=== PATIENT | male | born 1975 | race Caucasian/White ===

== ENCOUNTER 2017-12-16 19:18 | Emergency (ER) | payer OTHER ==
[~2017-12-16] VITALS: Ht 175.3 cm; Wt 86.2 kg
[~2017-12-16 19:18] MED LIST: Bactrim Ds Tab1 EACH PO; CEPH500 PO; CODACE30 PO; CYCL10 PO; IBUP800 PO; Keflex500 MG PO; NAPR500 PO; NAPR500ERA PO; Norco 5-325 Ta1 EACH PO; OXYACE5T PO; PENVK500 PO; PROM25 PO; TRAM50 PO; Ultram50 MG PO
[2017-12-16 20:37] LABS: BASOPHILS ABSOLUTE AUTO 0.09 K/mm3 (0.00-0.23); BASOPHILS PERCENT AUTO 1 % (0-2); EOSINOPHILS ABSOLUTE AUTO 0.36 K/mm3 (0.00-0.68); EOSINOPHILS PERCENT AUTO 2 % (0-6); Hematocrit 41.4 % (37.0-53.0); Hemoglobin 13.9 g/dL (13.5-17.5); IMMATURE GRAN ABSOLUTE AUTO 0.11 K/mm3 (0.00-0.10); IMMATURE GRAN PERCENT AUTO 1 % (0-1); LYMPHOCYTES ABSOLUTE AUTO 2.38 K/mm3 (0.84-5.20); LYMPHOCYTES PERCENT AUTO 15 % (21-46); MONOCYTES ABSOLUTE AUTO 1.52 K/mm3 (0.16-1.47); MONOCYTES PERCENT AUTO 10 % (4-13); Mean Corpuscular HGB 30.2 pg (26.0-34.0); Mean Corpuscular HGB Conc 33.6 g/dL (31.5-36.5); Mean Corpuscular Volume 90 fL (80-100); Mean Platelet Volume 9.8 fL (9.1-12.4); NEUTROPHILS ABSOLUTE AUTO 11.01 K/mm3 (1.96-9.15); NEUTROPHILS PERCENT AUTO 71 % (41-73); Platelet Count 308 K/mm3 (150-400); RDW Coefficient Variation 13.2 % (11.7-14.2); RDW Standard Deviation 43.5 fL (35.1-46.3); White Blood Cell Count 15.47 K/mm3 (4.00-11.30)
[2017-12-16 20:51] LABS: Anion Gap 11 mmol/L (6-16); Blood Urea Nitrogen 16 mg/dL (8-24); CO2, Blood 22 mmol/L (21-32); Calcium, Blood 8.9 mg/dL (8.5-10.1); Chloride, Blood 105 mmol/L (98-108); Creatinine, Blood 0.67 mg/dL (0.60-1.20); Glomerular Filtration Rate >60 (60-); Glucose, Blood 85 mg/dL (70-99); Potassium, Blood 3.7 mmol/L (3.5-5.5); Sodium, Blood 138 mmol/L (136-145)
[2017-12-16] MEDS ORDERED: CEPH500 PO (23:17)
[2017-12-16] MEDS ORDERED: Percocet 5-3251 EACH PO (23:17)
[2018-01-15] MEDS ORDERED: Percocet 10-321 EACH PO (17:55)
[2018-01-15] MEDS ORDERED: IBUP800 PO (17:55)
[2018-03-06] MEDS ORDERED: CEPH500 PO (20:59)
[2018-06-24] MEDS ORDERED: ROXICODONE5 MG PO (15:50)
[2018-06-24] MEDS ORDERED: DOCU100 PO (15:59)
[2018-06-24] MEDS ORDERED: NAPR500 PO (16:00)
== END 2017-12-16 23:43 | disposition home or self-care (01) ==
LOC: ER 19:18
PROVIDERS: Nurse Practitioner Family
DX: L02.411 Cutaneous abscess of right axilla (principal); Z88.5 Allergy status to narcotic agent; Z87.891 Personal history of nicotine dependence
CPT/HCPCS: 10061; 36415; 76604; 80048; 85025; 99284

== ENCOUNTER 2017-12-18 22:07 | Emergency (ER) | payer OTHER ==
[~2017-12-18] VITALS: Ht 175.3 cm; Wt 86.2 kg
[~2017-12-18 22:07] MED LIST changes: +Percocet 5-3251 EACH PO
[2017-12-18] MEDS ORDERED: HYDR-86 PO (22:46)
[2018-01-15] MEDS ORDERED: IBUP800 PO (17:55)
[2018-01-15] MEDS ORDERED: Percocet 10-321 EACH PO (17:55)
[2018-03-06] MEDS ORDERED: CEPH500 PO (20:59)
[2018-06-24] MEDS ORDERED: ROXICODONE5 MG PO (15:50)
[2018-06-24] MEDS ORDERED: DOCU100 PO (15:59)
[2018-06-24] MEDS ORDERED: NAPR500 PO (16:00)
== END 2017-12-18 23:21 | disposition home or self-care (01) ==
LOC: ER 22:07
DX: L02.411 Cutaneous abscess of right axilla (principal); Z88.5 Allergy status to narcotic agent; Z79.2 Long term (current) use of antibiotics; Z87.891 Personal history of nicotine dependence
CPT/HCPCS: 10060; 99283

== ENCOUNTER 2017-12-20 16:35 | Emergency (ER) | payer OTHER ==
[~2017-12-20] VITALS: Ht 175.3 cm; Wt 86.2 kg
[~2017-12-20 16:35] MED LIST changes: +HYDR-86 PO
[2017-12-20] MEDS ORDERED: Percocet 5-3251 EACH PO (17:59)
[2018-01-15] MEDS ORDERED: Percocet 10-321 EACH PO (17:55)
[2018-01-15] MEDS ORDERED: IBUP800 PO (17:55)
[2018-03-06] MEDS ORDERED: CEPH500 PO (20:59)
[2018-06-24] MEDS ORDERED: ROXICODONE5 MG PO (15:50)
[2018-06-24] MEDS ORDERED: DOCU100 PO (15:59)
[2018-06-24] MEDS ORDERED: NAPR500 PO (16:00)
== END 2017-12-20 18:03 | disposition home or self-care (01) ==
LOC: ER 16:35
DX: L02.411 Cutaneous abscess of right axilla (principal); Z88.5 Allergy status to narcotic agent; Z87.891 Personal history of nicotine dependence
CPT/HCPCS: 99282

== ENCOUNTER 2018-01-15 14:25 | Emergency (ER) | END 2018-01-15 18:13 | disposition home or self-care (01) ==

== ENCOUNTER 2018-08-16 12:12 | Day surgery (SDC) | payer OTHER ==
[~2018-08-16] VITALS: Ht 175.3 cm; Wt 88.5 kg
[~2018-08-16 12:12] MED LIST changes: +DOCU100 PO; +Percocet 10-321 EACH PO; +ROXICODONE5 MG PO
== END 2018-08-16 16:55 | disposition home or self-care (01) ==
LOC: ORSCSDS 12:12
PROVIDERS: Orthopaedic Surgery
PROC: 0PSK04Z Reposition Right Ulna with Internal Fixation Device, Open Approach (ICD-10-PCS; principal; 2018-08-16 13:30)
DX: S52.201G Unspecified fracture of shaft of right ulna, subsequent encounter for closed fracture with delayed healing (principal); F17.220 Nicotine dependence, chewing tobacco, uncomplicated
CPT/HCPCS: C1713; J0690; J1885; J2060; J2250; J3010; J7120

== ENCOUNTER 2018-12-24 08:43 | Emergency (ER) | payer OTHER ==
[~2018-12-24] VITALS: Ht 175.3 cm; Wt 86.2 kg
[2018-12-24] MEDS ORDERED: Amoxicillin875 MG PO (09:19)
[2018-12-24] MEDS ORDERED: KETO10 PO (09:19)
[2018-12-24] MEDS ORDERED: Ultram50 MG PO (14:08)
== END 2018-12-24 09:40 | disposition home or self-care (01) ==
LOC: ER 08:43
DX: K02.9 Dental caries, unspecified (principal); Z87.891 Personal history of nicotine dependence
CPT/HCPCS: 99282

== ENCOUNTER 2018-12-24 13:59 | Emergency (ER) | payer OTHER ==
[~2018-12-24] VITALS: Ht 175.3 cm; Wt 86.2 kg
[~2018-12-24 13:59] MED LIST changes: +Amoxicillin875 MG PO; +KETO10 PO
[2018-12-24] MEDS ORDERED: Ultram50 MG PO (14:08)
== END 2018-12-24 14:32 | disposition home or self-care (01) ==
LOC: ER 13:59
DX: K04.7 Periapical abscess without sinus (principal); Z79.899 Other long term (current) drug therapy; Z87.891 Personal history of nicotine dependence
CPT/HCPCS: 99282

== ENCOUNTER → 2018-12-28 | Outpatient (CLI) | payer OTHER ==
[2018-12-28 18:37] LABS: BASOPHILS ABSOLUTE AUTO 0.11 K/mm3 (0.00-0.23); BASOPHILS PERCENT AUTO 1 % (0-2); EOSINOPHILS ABSOLUTE AUTO 0.21 K/mm3 (0.00-0.68); EOSINOPHILS PERCENT AUTO 3 % (0-6); Hematocrit 44.3 % (37.0-53.0); Hemoglobin 14.6 g/dL (13.5-17.5); IMMATURE GRAN ABSOLUTE AUTO 0.07 K/mm3 (0.00-0.10); IMMATURE GRAN PERCENT AUTO 1 % (0-1); LYMPHOCYTES ABSOLUTE AUTO 2.56 K/mm3 (0.84-5.20); LYMPHOCYTES PERCENT AUTO 31 % (21-46); MONOCYTES ABSOLUTE AUTO 0.72 K/mm3 (0.16-1.47); MONOCYTES PERCENT AUTO 9 % (4-13); Mean Corpuscular HGB 29.9 pg (26.0-34.0); Mean Corpuscular Volume 91 fL (80-100); Mean Platelet Volume 10.8 fL (9.1-12.4); NEUTROPHILS ABSOLUTE AUTO 4.71 K/mm3 (1.96-9.15); NEUTROPHILS PERCENT AUTO 56 % (41-73); Platelet Count 308 K/mm3 (150-400); RDW Coefficient Variation 14.5 % (11.7-14.2); RDW Standard Deviation 48.5 fL (35.1-46.3); Red Blood Cell Count 4.89 M/mm3 (4.30-5.90); White Blood Cell Count 8.38 K/mm3 (4.00-11.30)
[2018-12-28 19:17] LABS: Alanine Aminotransfer (ALT/SGP 19 U/L (12-78); Albumin/Globulin Ratio 1.2 (0.8-1.8); Alk Phos 63 U/L (50-136); Anion Gap 8 mmol/L (6-16); Aspartate Aminotrans (AST/SGOT 9 U/L (12-37); Bilirubin, Total 0.4 mg/dL (0.1-1.0); Blood Urea Nitrogen 13 mg/dL (8-24); Bun/Creatinine Ratio 18.1 (12.0-20.0); CO2, Blood 27 mmol/L (21-32); Calcium, Blood 8.9 mg/dL (8.5-10.1); Chloride, Blood 106 mmol/L (98-108); Creatinine, Blood 0.72 mg/dL (0.60-1.20); Globulin, Blood 3.2 g/dL (2.2-4.0); Glomerular Filtration Rate >60 (60-); Glucose, Blood 98 mg/dL (70-99); Sodium, Blood 141 mmol/L (136-145); Total Protein, Blood 7.2 g/dL (6.4-8.2)
[2019-01-02 17:06] LABS: HEPATITIS C QUANTITATION HCV Not Detected IU/mL (.)
== END ==
LOC: LAB SHORT 18:20 → LAB 18:20
PROVIDERS: Nurse Practitioner Family
DX: B18.2 Chronic viral hepatitis C (principal)
CPT/HCPCS: 80053; 85025; 86803; 87522; 87902

== ENCOUNTER 2022-09-30 22:19 | Emergency (ER) | payer OTHER ==
[~2022-09-30] VITALS: Ht 175.3 cm; Wt 86.2 kg
[2022-09-30 22:59] LABS: BASOPHILS ABSOLUTE AUTO 0.15 K/mm3 (0.00-0.23); BASOPHILS PERCENT AUTO 1 % (0-2); EOSINOPHILS ABSOLUTE AUTO 1.07 K/mm3 (0.00-0.68); EOSINOPHILS PERCENT AUTO 10 % (0-6); Hematocrit 44.7 % (37.0-53.0); Hemoglobin 15.2 g/dL (13.5-17.5); IMMATURE GRAN ABSOLUTE AUTO 0.04 K/mm3 (0.00-0.10); IMMATURE GRAN PERCENT AUTO 0 % (0-1); LYMPHOCYTES ABSOLUTE AUTO 2.39 K/mm3 (0.84-5.20); LYMPHOCYTES PERCENT AUTO 22 % (21-46); MONOCYTES ABSOLUTE AUTO 1.14 K/mm3 (0.16-1.47); MONOCYTES PERCENT AUTO 10 % (4-13); Mean Corpuscular Volume 88 fL (80-100); NEUTROPHILS ABSOLUTE AUTO 6.24 K/mm3 (1.96-9.15); NEUTROPHILS PERCENT AUTO 57 % (41-73); Platelet Count 293 K/mm3 (150-400); RDW Coefficient Variation 13.4 % (11.7-14.2); RDW Standard Deviation 43.3 fL (35.1-46.3); Red Blood Cell Count 5.07 M/mm3 (4.30-5.90); White Blood Cell Count 11.03 K/mm3 (4.00-11.30)
[2022-09-30 23:17] LABS: Albumin, Blood 3.9 g/dL (3.4-5.0); Albumin/Globulin Ratio 1.1 (0.8-1.8); Bilirubin, Total 1.2 mg/dL (0.1-1.0); Bun/Creatinine Ratio 27.9 (12.0-20.0); Calcium, Blood 9.3 mg/dL (8.5-10.1); Creatinine, Blood 0.68 mg/dL (0.60-1.20); Globulin, Blood 3.6 g/dL (2.2-4.0); Potassium, Blood 3.9 mmol/L (3.5-5.5); Total Protein, Blood 7.5 g/dL (6.4-8.2)
[2022-10-01] MEDS ORDERED: PRED20 PO (01:57)
[2022-10-01] MEDS ORDERED: ALBU90OI INH (01:57)
== END 2022-10-01 02:10 | disposition home or self-care (01) ==
LOC: ER 22:19
PROVIDERS: Student in an Organized Health Care Education/Training Program
DX: J44.1 Chronic obstructive pulmonary disease with (acute) exacerbation (principal); Z79.899 Other long term (current) drug therapy; F17.220 Nicotine dependence, chewing tobacco, uncomplicated
CPT/HCPCS: 36415; 71046; 80053; 84484; 85025; 93005; 93010; 94644; 94645; 94664; J2930

== ENCOUNTER 2022-10-16 16:23 | Observation (INO) | payer OTHER ==
[~2022-10-16] VITALS: Ht 175.3 cm; Wt 81.6 kg
[~2022-10-16 16:23] MED LIST changes: +ALBU90OI INH; +PRED20 PO
[2022-10-16 17:00] LABS: BASOPHILS ABSOLUTE AUTO 0.11 K/mm3 (0.00-0.23); BASOPHILS PERCENT AUTO 1 % (0-2); EOSINOPHILS ABSOLUTE AUTO 1.61 K/mm3 (0.00-0.68); EOSINOPHILS PERCENT AUTO 14 % (0-6); Hematocrit 46.1 % (37.0-53.0); Hemoglobin 15.5 g/dL (13.5-17.5); IMMATURE GRAN ABSOLUTE AUTO 0.04 K/mm3 (0.00-0.10); IMMATURE GRAN PERCENT AUTO 0 % (0-1); LYMPHOCYTES ABSOLUTE AUTO 2.21 K/mm3 (0.84-5.20); LYMPHOCYTES PERCENT AUTO 19 % (21-46); MONOCYTES ABSOLUTE AUTO 0.88 K/mm3 (0.16-1.47); MONOCYTES PERCENT AUTO 8 % (4-13); Mean Corpuscular HGB 29.8 pg (26.0-34.0); Mean Corpuscular HGB Conc 33.6 g/dL (31.5-36.5); Mean Corpuscular Volume 89 fL (80-100); Mean Platelet Volume 9.7 fL (9.1-12.4); NEUTROPHILS ABSOLUTE AUTO 6.85 K/mm3 (1.96-9.15); NEUTROPHILS PERCENT AUTO 59 % (41-73); Platelet Count 318 K/mm3 (150-400); RDW Coefficient Variation 13.5 % (11.7-14.2); RDW Standard Deviation 43.8 fL (35.1-46.3); Red Blood Cell Count 5.21 M/mm3 (4.30-5.90)
[2022-10-16 17:18] LABS: Albumin, Blood 3.9 g/dL (3.4-5.0); Albumin/Globulin Ratio 1.1 (0.8-1.8); Bilirubin, Total 0.6 mg/dL (0.1-1.0); Bun/Creatinine Ratio 17.5 (12.0-20.0); Calcium, Blood 9.5 mg/dL (8.5-10.1); Creatinine, Blood 0.57 mg/dL (0.60-1.20); Globulin, Blood 3.7 g/dL (2.2-4.0); Potassium, Blood 4.3 mmol/L (3.5-5.5); Total Protein, Blood 7.6 g/dL (6.4-8.2)
[2022-10-16] MEDS ORDERED: Ventolin/Prove6.7 GM (18:50)
[2022-10-16 19:52] LABS: Influenza A, PCR NEGATIVE (NEGATIVE); Influenza B, PCR NEGATIVE (NEGATIVE); Resp Syncytial Virus, PCR NEGATIVE (NEGATIVE); SARS-Cov-2 (COVID-19) PCR, MMC NEGATIVE (NEGATIVE)
--- NOTE | 2022-10-16 22:32 | NUR ---
ADMIT NOTE; PT ARRIVED TO THE FLOOR FROM THE ED VIA ED GURNEY. THE PT ARRIVED ON 2L NC TO MAINTAIN SATS GREATER THAN 92%. THE PT WAS ABLE TO AMBULATE FROM THE ED GURNEY TO THE HOSPITAL BED INDEPENDENTLY WITH NO ISSUES. THE PT IS AXO X4, KIND AND PLEASANT. THE PT REPORTS NO PAIN OR SOB AT THIS TIME.
--- NOTE | 2022-10-17 04:44 | NUR ---
SHIFT SUMMARY; NO ACUTE CHANGES OVERNIGHT. THE PT REMAINED ON 2L NC WITH STABLE O2 SATS. THE PT WAS KIND AND COOPERATIVE WITH CARE. THE PT DENIES ANY PAIN OR SOB AT THIS TIME. THE PT REMAINS INDEPENDENT IN THE ROOM. INCENTIVE SPIROMETER AT BEDSIDE, THE PT IS ENCOURAGED TO USE IT WHILE AWAKE. CURRENTLY THE PT IS RESTING IN BED WITH THE BED IN THE LOWEST POSITION AND THE CALL LIGHT AT BEDSIDE.
[2022-10-17 05:01] LABS: BASOPHILS ABSOLUTE AUTO 0.03 K/mm3 (0.00-0.23); BASOPHILS PERCENT AUTO 0 % (0-2); EOSINOPHILS PERCENT AUTO 0 % (0-6); Hematocrit 47.4 % (37.0-53.0); Hemoglobin 15.8 g/dL (13.5-17.5); IMMATURE GRAN ABSOLUTE AUTO 0.03 K/mm3 (0.00-0.10); IMMATURE GRAN PERCENT AUTO 0 % (0-1); LYMPHOCYTES ABSOLUTE AUTO 0.66 K/mm3 (0.84-5.20); LYMPHOCYTES PERCENT AUTO 6 % (21-46); MONOCYTES PERCENT AUTO 1 % (4-13); Mean Corpuscular HGB Conc 33.3 g/dL (31.5-36.5); Mean Corpuscular Volume 90 fL (80-100); Mean Platelet Volume 11.1 fL (9.1-12.4); NEUTROPHILS ABSOLUTE AUTO 9.48 K/mm3 (1.96-9.15); NEUTROPHILS PERCENT AUTO 92 % (41-73); Platelet Count 298 K/mm3 (150-400); RDW Coefficient Variation 13.6 % (11.7-14.2); RDW Standard Deviation 45.7 fL (35.1-46.3); Red Blood Cell Count 5.26 M/mm3 (4.30-5.90)
[2022-10-17 05:27] LABS: Albumin, Blood 3.8 g/dL (3.4-5.0); Albumin/Globulin Ratio 0.9 (0.8-1.8); Bilirubin, Total 0.6 mg/dL (0.1-1.0); Calcium, Blood 9.7 mg/dL (8.5-10.1); Creatinine, Blood 0.46 mg/dL (0.60-1.20); Globulin, Blood 4.1 g/dL (2.2-4.0); Potassium, Blood 4.9 mmol/L (3.5-5.5); Total Protein, Blood 7.9 g/dL (6.4-8.2)
[2022-10-17] MEDS ORDERED: AIRDUO RESPICL1 EAC4 INH (09:29)
[2022-10-17] MEDS ORDERED: IPRAT-ALBUT 0.5-3 ML INH (09:30)
[2022-10-17] MEDS ORDERED: Zithromax Tri-500 MG PO (09:32)
[2022-10-17] MEDS ORDERED: Prednisone10 MG PO (09:33)
--- NOTE | 2022-10-17 10:30 | NUR ---
Discharge Summary A/Ox4. D/C to home. Reviewed d/c paperwork with patient, questions answered. was at bedside. Meds faxed to [facility]. Belongings sent home. Declined staff and w/c escort, patient ambulated self out.
--- NOTE | 2022-10-17 10:40 | NUR ---
PT DISCHARGED AT 1000. AOX4 INDEPENDENT IN ROOM. DR SIDDIQI STATED PT DID NOT NEED HOME O2 EVAL AND PT WAS TOLERATING RA WAS MID 90s. NO DISTRESS NOTED ALL PAPERWORK REVIEWED AND EDUCATIONAL MATERIAL SENT WITH PT. PT ESCORTED OUT VIA WHEEL CHAIR AND TRANSPORTED HOME BY .
== END 2022-10-17 11:15 | disposition home or self-care (01) ==
LOC: ER 16:23 → MEDS 19:44
PROVIDERS: Physician Assistant; Student in an Organized Health Care Education/Training Program; ADMIT Internal Medicine
DX: J44.1 Chronic obstructive pulmonary disease with (acute) exacerbation (principal); J96.01 Acute respiratory failure with hypoxia; D72.10 Eosinophilia, unspecified; G89.29 Other chronic pain; M54.9 Dorsalgia, unspecified; Z87.891 Personal history of nicotine dependence; Z86.19 Personal history of other infectious and parasitic diseases; Z20.822 Contact with and (suspected) exposure to COVID-19
CPT/HCPCS: 0241U; 36415; 71046; 80053; 84484; 85025; 93005; 93010; 94640; 94644; 94664; 94760; A9270; J1650; J2930; J7512

== ENCOUNTER 2024-07-12 20:47 | Emergency (ER) | payer OTHER ==
[~2024-07-12] VITALS: Ht 175.3 cm; Wt 88.5 kg
[~2024-07-12 20:47] MED LIST changes: +AIRDUO RESPICL1 EAC4 INH; +IPRAT-ALBUT 0.5-3 ML INH; +Prednisone10 MG PO; +Ventolin/Prove6.7 GM; +Zithromax Tri-500 MG PO
[2024-07-12 21:06] VITALS: BP 138/90
[2024-07-12] MEDS ORDERED: Ketorolac Tromethamine 15mg Vial IM ONE (22:05)
[2024-07-12] MEDS ORDERED: Lidocaine 4% 1 Patch TOP ONE (22:05)
[2024-07-12] MEDS ORDERED: Robaxin750 MG PO (22:07)
[2024-07-12] MEDS ORDERED: ASPERFLEX1 EACH TOP (22:07)
[2024-07-13] MEDS ORDERED: DERMACINRX LID1 EACH TOP (17:18)
== END 2024-07-13 22:23 | disposition home or self-care (01) ==
LOC: ER 20:47
DX: G89.29 Other chronic pain (principal); M54.50 Low back pain, unspecified; J44.9 Chronic obstructive pulmonary disease, unspecified; F17.220 Nicotine dependence, chewing tobacco, uncomplicated
CPT/HCPCS: 96372; 99282-25; A9270; J1885